=== PATIENT | female | born 2000 | race Caucasian/White ===

== ENCOUNTER 2023-11-22 20:53 | Outpatient (CLI) | payer BC, MEDICAID, SELFPAY ==
[2023-11-22 21:04] VITALS: BP 126/65; PULSE 112
[2023-11-22 21:07] VITALS: BMI 36.6
[2023-11-22 21:14] VITALS: RESP 18; TEMP 36.4
[2023-11-22 21:20] VITALS: BP 136/82; PULSE 90
[2023-11-22 21:34] VITALS: BP 125/69; PULSE 79
[2023-11-22 21:36] LABS: Add Urine Microscopic? NO
[2023-11-22 21:46] LABS: Bilirubin Urine Neg (Negative); Blood Urine Neg (Negative); Glucose Urine UA Norm (Normal); Ketones Urine Negative (Negative); Leukocyte Esterase Urine Negative (Negative); Nitrate Urine Negative (Negative); Protein Urine Neg (Negative); Sulfosalicylic Acid Urine Negative (Negative); Urine Appearance Clear (CLEAR); Urine Color Yellow (Yellow); Urobilinogen Urine Neg (Negative); pH Urine 8 (5-7)
[2023-11-22 22:11] LABS: Add Urine Culture? No; Bacteria Urine TRACE /hpf; RBC Urine 0-4 /hpf (0-2); Squamous Epithelial Cell Urine 0-4 /hpf (0-5)
[2023-11-22] MEDS: calcium carbonate 500 mg Chew Tablet 1000 MG PO (23:01)
[2023-11-22 23:15] VITALS: BP 116/68; PULSE 77
== END 2023-11-23 00:41 | disposition home or self-care (01) ==
LOC: OPOB 20:54 → OBGYN 20:55
PROVIDERS: PCP Family Medicine; Visit Provider Family Medicine
DX: O26.899 Other specified pregnancy related conditions, unspecified trimester (principal); Z3A.00 Weeks of gestation of pregnancy not specified; R10.9 Unspecified abdominal pain
CPT/HCPCS: 59025; 81001; 99211

== ENCOUNTER 2023-12-10 09:07 | Outpatient (CLI) | payer BC, MEDICAID, SELFPAY ==
[2023-12-10 09:07] VITALS: BMI 36.4
[2023-12-10 09:25] VITALS: BP 142/92; PULSE 89
[2023-12-10 09:45] VITALS: BP 146/89; PULSE 79
[2023-12-10 10:05] VITALS: BP 130/93; PULSE 82
[2023-12-10 10:25] VITALS: BP 140/86; PULSE 78
[2023-12-10 10:45] VITALS: BP 137/89; PULSE 74
--- NOTE | 2023-12-10 11:07 | PC.NURSE ---
SVE rechecked in one hour from first exam. No cervical change noted. Pt given discharge instructions on when to return to OB and discharged home.
== END 2023-12-10 11:05 | disposition home or self-care (01) ==
LOC: OPOB 09:17 → OBGYN 09:19
PROVIDERS: PCP Family Medicine; Visit Provider Family Medicine
DX: O26.899 Other specified pregnancy related conditions, unspecified trimester (principal); Z3A.00 Weeks of gestation of pregnancy not specified; R10.9 Unspecified abdominal pain
CPT/HCPCS: 59025; 99211

== ENCOUNTER 2023-12-15 15:29 | Inpatient (IN) | payer BC, MEDICAID, SELFPAY ==
[2023-12-15] VITALS (38 sets, daily range): BP systolic 128–178; BP diastolic 6–108; PULSE 68–113; BMI 36.6
[2023-12-15 14:04] LABS: Add Urine Microscopic? NO; Charge for UA Resulting for Rev
[2023-12-15 14:19] LABS: Basophils % 0.2 %; Eosinophils % 0.4 %; Hematocrit 32.8 % (36-47); Lymphocytes # 2.5 10^3/uL (0.8-4.8); Lymphocytes % 22.8 %; Mean Corpuscular Hemoglobin 25.3 pg (27-33); Monocytes # 0.5 10^3/uL (0.2-0.9); Monocytes % 4.4 %; Neutrophils # 7.83 10^3/uL (1.8-7.7); Neutrophils % 71.7 %; Nucleated Red Blood Cells % 0.3 %; Platelet Count 327 10^3/cmm (157-399); Red Blood Count 4.15 10^6/uL (3.85-5.65); Red Cell Distribution Width 15.4 % (12.1-15.1); White Blood Count 10.91 10^3/uL (3.29-11.43)
[2023-12-15 14:25] LABS: Bilirubin Urine Neg (Negative); Blood Urine Neg (Negative); Glucose Urine UA Norm (Normal); Ketones Urine Negative (Negative); Leukocyte Esterase Urine Negative (Negative); Nitrate Urine Negative (Negative); Protein Urine Neg (Negative); Urine Appearance Clear (CLEAR); Urine Color Yellow (Yellow); Urobilinogen Urine Norm (Negative); pH Urine 8 (5-7)
[2023-12-15 14:36] LABS: Alanine Aminotransferase 7 U/L (0-33); Albumin Level 3.1 g/dL (3.5-5.2); Alkaline Phosphatase 370 U/L (35-105); Anion Gap 17.5 (5-19); Aspartate Amino Transferase 19 U/L (0-32); Blood Urea Nitrogen 2 mg/dL (6-20); Calcium 8.7 mg/dL (8.5-10.5); Carbon Dioxide 20 mmol/L (22-29); Chloride 104 mmol/L (98-107); Creatinine Clr Calc Pharmacy 152.7368; Globulin 3.4 g/dL (1.3-4.6); Glomerular Filtration Rate 123.9 mL/min (90-130); Glucose 110 mg/dL (65-115); Osmolality Calculated 283 mOsm/kg (285-295); Potassium 3.5 mmol/L (3.5-5.1); Sodium 138 mmol/L (136-145); Total Bilirubin 0.2 mg/dL (0.15-1.2); Total Protein 6.5 g/dL (6.6-8.7); Uric Acid 5.3 mg/dL (2.4-5.7)
[2023-12-15 14:54] LABS: Urine Creatinine 24 mg/dL (28-217); Urine Protein Random 7 mg/dL
[2023-12-15 14:56] LABS: UPRO/UCREAT Ratio 0.29 mg/mg CR
[2023-12-15] MEDS: dextrose 5%-lactated ringers 1,000 ML 125 ML IV (16:02)
[2023-12-15] MEDS: miSOPROStol 100 mcg tablet 25 MCG VAGINAL ×2 (16:02→22:26)
[2023-12-15] MEDS: ampicillin 2,000 MG in sodium chloride 0.9% (plus) 50 ML 100 MG IV (16:03)
[2023-12-15] MEDS: calcium carbonate 500 mg Chew Tablet 1000 MG PO (16:04)
--- NOTE | 2023-12-15 17:11 | PM.OPHPUD ---
Labor & Delivery H&P Update Date of Procedure: December 15, 2023 Date H&P Performed: 12/15/23 Changes to previous documentation: This is a 23-year-old G1, P0 at 37 weeks 3 days gestation who presented to clinic for routine follow-up. The patient complained of not feeling well today. She was somewhat nauseated and just didnt feel well . Her blood pressure in clinic was 160/100 so she was sent to labor and delivery for further evaluation. On labor and delivery her blood pressures were mostly 140s over 90s. Her urine protein creatinine ratio was 0.29. Her platelets were within normal limits as well as AST and ALT. Due to the fact that she was already 37 weeks and was symptomatic with elevated blood pressures decision was made to proceed with induction. Her cervix is not favorable so she will be started on Cytotec. Admission Diagnosis: -induced hypertension IUP at 37 weeks 3 days gestation Primary indication for procedure: Symptomatic elevated blood pressures at term Planned procedure: Induction of labor and delivery
[2023-12-15] MEDS: acetaminophen 325 mg Tablet 650 MG PO (18:48)
[2023-12-15] MEDS: hyDROXYzine 25 mg Capsule 50 MG PO (18:50)
[2023-12-15] MEDS: alum-mag-hydroxide-sime 30 mL UDC PO (18:51)
[2023-12-15] MEDS: ampicillin 1,000 MG in sodium chloride 0.9% (plus) 50 ML 100 MG IV (20:04)
--- NOTE | 2023-12-15 21:02 | ANES.PREANE2 ---
Pre-Anesthetic Assessment Height/Weight: Height 1.57 m Weight 90.718 kg Pulse BP O2 Del Method 70 140/78 Room Air 12/15/23 20:35 12/15/23 20:35 12/15/23 16:23 Preop Diagnosis: IUP Labor epidural Familial anesthetic complications: None Was Beta Lucien taken within 24 hours: N/A Was Clonidine taken within 24 hours: N/A Social No alcohol and No tobacco Exam alert, oriented x 3 and clear to auscultation bilaterally Airway Mallampati: Class II Dentition: full History/ROS No significant history except as noted Pulmonary None reported CV/HEM Hypertension gestational HTN None reported Hepatic None reported GI None reported Metabolic None reported Musc/skel None reported Neuropsych None reported Anesthetic Plan ASA status: 2 Anesthesia: Anesthesia Evaluation and Eval. for regional block (epidural ) Risk of > 500 ml blood loss (7ml/kg in children): Yes, adequate IV access and fluids planned Medications/Allergies Home Medications Medication Instructions Recorded Confirmed Last Taken Type Prena-Tab 1 tab PO DAILY 11/22/23 12/10/23 11/22/23 History Tylenol 1,000 mg PO PRN 11/22/23 12/10/23 11/22/23 History calcium 1 tab PO DAILY 11/22/23 12/10/23 11/22/23 History Allergies Allergy/AdvReac Type Severity Reaction Status Date / Time NSAIDS (Non-Steroidal Allergy ADR-Vomitin Verified 11/22/23 21:10 Anti-Inflamma g Current Medications Generic Name Dose Route Start Last Admin Trade Name Freq PRN Reason Stop Dose Admin Acetaminophen 650 mg 12/15/23 15:37 12/15/23 18:48 Acetaminophen 325 Mg Tablet PO 650 mg Q6H PRN Administration Mild pain or temp > 100.4 Al Hydrox/Mg Hydrox/Simethicone 30 ml 12/15/23 15:37 12/15/23 18:51 Kiyh-Obg-Pcifniyoo-Randy 30 Ml Udc PO 30 ml Q4H PRN Administration Indigestion (Use 2nd) Calcium Carbonate 1,000 mg 12/15/23 15:37 12/15/23 16:04 Calcium Carbonate 500 Mg Chew Tablet PO 1,000 mg Q4H PRN Administration Heartburn/Indigestion (Use 1st) Hydroxyzine Pamoate 50 mg 12/15/23 15:37 12/15/23 18:50 Hydroxyzine 25 Mg Capsule PO 50 mg QID PRN Administration sleep, agitation or itching Dextrose/Lactated Ringer's 1,000 mls @ 125 mls/hr 12/15/23 15:45 12/15/23 17:00 Dextrose 5%-Lactated Ringers IV 0 mls/hr .Q8H DIONICIO Infusion Ampicillin Sodium 1,000 mg/ 50 mls @ 100 mls/hr 12/15/23 19:45 12/15/23 20:04 Sodium Chloride IV 100 mls/hr Q4H DIONICIO Administration Protocol [facility] Anesthesia Family History (Updated 09/09/22 @ 15:31 by Jeannie Murray) Mother Cancer skin Brother Diabetes Type 2 Denies family history of CAD (coronary artery disease) Hypertension Stroke Female Reproductive History : 1 Data Anesthesia 12/15/23 14:05 12/15/23 14:05 Short CBC 12/15/23 Range/Units 14:05 WBC 10.91 (3.29-11.43) 10^3/uL Hgb 10.50 L (11.27-16.99) g/dL Hct 32.8 L (36-47) % MCV 79.0 L (85-98) fl Plt Count 327 (157-399) 10^3/cmm Neut % (Auto) 71.7 % Neut # (Auto) 7.83 H (1.8-7.7) 10^3/uL BMP 12/15/23 14:05 Sodium 138 Potassium 3.5 Chloride 104 Carbon Dioxide 20 L BUN 2 L Creatinine 0.6 Glucose 110 Calcium 8.7 Liver Function 12/15/23 Range/Units 14:05 Total Bilirubin 0.2 (0.15-1.2) mg/dL AST 19 (0-32) U/L ALT 7 (0-33) U/L Alkaline Phosphatase 370 H (35-105) U/L Albumin 3.1 L (3.5-5.2) g/dL Urine 12/15/23 Range/Units 13:35 Urine Color Yellow (Yellow) Urine Appearance Clear (CLEAR) Urine pH 8 H (5-7) Ur Specific [place] 1.010 (1.005-1.030) Urine Protein Neg (Negative) Urine Glucose (UA) Norm (Normal) Urine Ketones Negative (Negative) Urine Nitrate Negative (Negative) Urine Bilirubin Neg (Negative) Ur Leukocyte Esterase Negative (Negative) Blood Bank 12/15/23 14:05 Blood Type O Positive Rho(D) Type Rh positive Antibody Screen Negative Cardiac Studies: No Data to Display
[2023-12-16] VITALS (134 sets, daily range): BP systolic 103–180; BP diastolic 43–115; PULSE 63–105; RESP 14–16; TEMP 36.2–36.6; O2SAT 97–100
[2023-12-16] MEDS: ampicillin 1,000 MG in sodium chloride 0.9% (plus) 50 ML 100 MG IV ×6 (00:15→19:25)
[2023-12-16] MEDS: calcium carbonate 500 mg Chew Tablet 1000 MG PO (00:15)
[2023-12-16] MEDS: lactated ringers 1,000 ML 999 ML IV ×3 (02:48→22:24)
[2023-12-16] MEDS: ROPivacaine syringe 100 MG/50 ML SYRINGE 10 MG EPIDURAL ×5 (04:03→20:54)
--- NOTE | 2023-12-16 04:12 | P.ANESUD_ITS ---
Pre-Anesthetic Update Pre-Anesthetic Assessment: Date of Surgery/Procedure: 12/16/23 Preop María gnosis: IUP Proposed Procedure: labor epidural Any changes to Pre-Anesthetic Assessment?: No Last Intake: solids @1900, liquids @2100 Labs Last 48hrs: Short CBC 12/15/23 Range/Units 14:05 WBC 10.91 (3.29-11.43) 10^ 3/uL Hgb 10.50 L (11.27-16.99) g/ dL Hct 32.8 L (36-47) % MCV 79.0 L (85-98) fl Plt Count 327 (157-399) 10^3/c mm Neut % (Auto) 71.7 % Neut # (Auto) 7.83 H (1.8-7.7) 10^3/u L BMP 12/15/23 14:05 Sodium 138 Potassium 3.5 Chloride 104 Carbon Dioxide 20 L BUN 2 L Creatinine 0.6 Glucose 110 Calcium 8.7 Liver Function 12/15/23 Range/Units 14:05 Total Bilirubin 0.2 (0.15-1.2) mg/dL AST 19 (0-32) U/L ALT 7 (0-33) U/L Alkaline Phosphata se 370 H (35-105) U/L Albumin 3.1 L (3.5-5.2) g/dL Urine 12/15/23 Range/Units 13:35 Urine Color Yellow (Yellow) Urine Appearance Clear (CLEAR) Urine pH 8 H (5-7) Ur Specific Gravit y 1.010 (1.005-1.030) Urine Protein Neg (Negative) Urine Glucose (UA) Norm (Normal) Urine Ketones Negative (Negative) Urine Nitrate Negative (Negative) Urine Bilirubin Neg (Negative) Ur Leukocyte Dotty ase Negative (Negative) Blood Bank 12/15/23 14:05 Blood Type O Positive Rho(D) Type Rh positive Antibody Screen Negative Vitals: Pulse Rate 93 12/16/23 04:09 Pulse Rhythm Regular 12/15/23 16:23 Respiratory Effort Spontaneous, Non- Labored 12/15/23 16:23 Respiratory Depth Normal 12/15/23 16:23 Respiratory Patter n Normal 12/15/23 16:23 Blood Pressure 140/87 12/16/23 04:09 Pulse Oximetry 98 12/16/23 04:07 Oxygen Delivery Me thod Room Air 12/15/23 16:23 Exam: Pre-Anes Outpt Exam: alert, oriented x 3 and clear to auscultation bilaterally Cardiac Studies: No Data to Display Anesthesia Procedures Epidural: Time Out Performed: Yes Consents Signed: Procedure Consent Consent: requested by attending/covering physician, from patient, risks and benefits reviewed and patient agrees to proceed Lumbar Level: L4-L5 Epidural position: sitting Epidural procedure: sterile prep of area, 1% lidocaine to numb the area, 18 g needle, negative for paresthesia passed, neg for paresthesia, test dose given, 1.5% xylocaine 1:200k epi, 0.2% Ropivacaine bolus ml (5), placed PCEA, no systemic response, sterile dressing applied, L.U.D. no apparent complications and 0.2% Ropiavacaine @ mls/hr (10) Additional Comments: JULY 6cm, catheter easily threaded to 5cm in the space. Pt educated on [employer]. VS monitored and remained stable throughout the procedure.
[2023-12-16] MEDS: dextrose 5%-lactated ringers 1,000 ML 125 ML IV (11:53)
--- NOTE | 2023-12-16 12:32 | P.PN_ITS ---
Subjective 2 Subjective: The patient is being induced for -induced hypertension. She received 2 doses of Cytotec and received an epidural overnight. The infant's head was well engaged so I just performed artificial rupture of membranes with clear fluid. We will see if this stimulates her to make more cervical change. If not then we will be starting Pitocin. Her blood pressures have been mostly mild she has had a couple severe but they were not sustained. Vitals/I&O/Wt Last Vital Signs Temp 97.2 F L 12/16/23 11:52 Pulse 83 12/16/23 12:25 BP 156/94 12/16/23 12:25 Pulse Ox 100 12/16/23 04:42 O2 Del Method Room Air 12/15/23 16:23 12/15/23 12/16/23 12/16/23 22:59 06:59 14:59 Intake Total 220.833 / 830.368 8852 / 1320.833 885.417 / 885.417 Balance 220.833 / 693.235 2848 / 1320.833 885.417 / 885.417 Weight last 48 hrs Weight 90.718 kg Physical Exam 2 Narrative: Alert and oriented, lying in bed, cervical exam 4 cm, 50% effaced, -3 station, clear fluid with artificial rupture membranes Urinary Catheter Management: Valle: Cath Placed During This Visit: yes Reason for Continuing Indwelling Catheter: Required Immobilization for Trauma or Surgery or Anesthesia Urinary Catheter Date of Insertion: 12/16/23 Urinary Catheter Time of Insertion: 04:30 Data 12/15/23 14:05 12/15/23 14:05 A&P Assessment and plan (1) -induced hypertension in third trimester: Reason for induction. She has not required antihypertensives yet. (2) Group B streptococcal carriage complicating : She continues to receive ampicillin protocol and has already received multiple doses. (3) with 37 weeks completed gestation: Expectant management of labor and delivery Attestations 2 Medical Necessity Statement*: Induction with expectant management of labor and delivery Coding Level of Care Code Acute Code for Chg Fwd Diagnoses -induced hypertension in third trimester O13.3 Group B streptococcal carriage complicating O99.820 with 37 weeks completed gestation Z3A.37
[2023-12-16] MEDS: labetalol 5 mg/mL SDV 20mL 20 MG IVP ×3 (13:52→22:32)
[2023-12-16] MEDS: oxytocin 30 UNIT/500 ML BAG IV (13:58)
[2023-12-16] MEDS: citric acid-sodium citrate 30 mL UDC PO (22:35)
[2023-12-16] MEDS: metoclopramide 5 mg/mL SDV 2 mL 10 MG IVP (22:35)
[2023-12-16] MEDS: ceFAZolin 2,000 mg SDV 2000 MG IVP (22:35)
[2023-12-16] MEDS: famotidine 20 mg/2 mL INJ IVP (22:35)
--- NOTE | 2023-12-16 23:55 | PM.OP ---
Operative Report Date of procedure: December 16, 2023 Pre-op diagnosis: Failure to progress Intrauterine at 37 weeks gestation -induced hypertension Procedure done: Primary low-transverse section Via Pfannenstiel skin incision Specimens removed/disposition: Vertex male weight 3560 g, Apgars 8 and 9 Surgeon: Mirta Kirby MD Anesthesia: Epidural Estimated blood loss (mL): 500 IV fluids (mL): 1,500 Urine output (mL): 150 Complications: None Brief History: Despite high-dose Pitocin and rupture of membranes the patient only dilated to 5 cm 50% effacement and -2 station. Over the course of 4 hours there was no progress in dilation and effacement or station Procedure: After informed consent the patient was taken to the OR where epidural anesthesia was verified. The patient was prepped and draped in normal sterile fashion in dorsal supine position with a left lateral tilt. A Pfannenstiel skin incision was made and carried through to the underlying layer of fascia sharply. The fascia was then grasped with [place] clamps and the underlying rectus muscles were dissected off taking care to avoid injury to the underlying tissue. The peritoneum was entered bluntly and the incision site was manually stretched. The bladder blade was inserted. The vesicouterine peritoneum was identified and entered sharply using the Metzen[place]ums. The bladder flap was then created digitally and the bladder blade was reinserted. Uterine incision was made in a transverse fashion in the lower uterine segment. Amniotic rupture of membranes was performed with the scalpel and clear fluid was noted. The was delivered atraumatically with bulb suction of the mouth and naris at delivery. The cord was clamped and cut and the infant was handed to the waiting pediatric nurse. The bladder blade was reinserted and fundal pressure was used to express the placenta. The placenta bulged easily from the incision site and was grasped for removal. Upon removal it was evident that the placenta was still attached to the uterus which had everted. The uterus was quickly and easily inverted back into correct anatomical position. The placenta was then removed using fundal pressure. The uterus was then removed from the abdomen. A dry sponge was used to clear the uterus of clots and debris. Uterine incision was repaired in a running fashion using 0 chromic in a running locked fashion. The uterus was rather boggy despite a bolus of Pitocin so 10 units of Pitocin was sterilely drawn up and injected directly into the body of the uterus. The uterine incision was then repaired with a second layer using an imbricating manner with 0 chromic. The uterus was returned to the abdomen and irrigation was used to clear the gutters of clots and debris. Uterine incision was reinspected for hemostasis. Peritoneum was then reapproximated using 4-0 Vicryl in a running fashion. The rectus muscles were gently reapproximated using 1 [id number] suture of 4-0 Vicryl. The subfascial tissue was inspected for hemostasis and the fascia was then reapproximated using 0 Vicryl in a running fashion. The subcutaneous tissue was irrigated and then reapproximated using 4-0 Vicryl in a running fashion. The skin was then reapproximated using 4-0 Vicryl on a Quentin needle. Steri-Strips and a pressure bandage were applied and patient went to recovery in good condition
[2023-12-17] VITALS (20 sets, daily range): BP systolic 98–162; BP diastolic 60–94; PULSE 64–93; RESP 14–16; TEMP 36.4–37; O2SAT 98–100
[2023-12-17] MEDS: ketorolac 30 mg/mL INJ IVP ×4 (02:12→19:53)
[2023-12-17] MEDS: dextrose 5%-lactated ringers 1,000 ML 125 ML IV (03:54)
--- NOTE | 2023-12-17 07:19 | P.ANESUD_ITS ---
Pre-Anesthetic Update Pre-Anesthetic Assessment: Date of Surgery/Procedure: 12/16/23 Preop María gnosis: IUP Proposed Procedure: Operation Date: 12/16/23 22:40 Proposed Procedures p Section(Not Applicable) - Mirta Kirby MD Changes from Pre-Anesthetic Assessment: no Last Intake: na Labs Last 48hrs: Short CBC 12/15/23 Range/Units 14:05 WBC 10.91 (3.29-11.43) 10^ 3/uL Hgb 10.50 L (11.27-16.99) g/ dL Hct 32.8 L (36-47) % MCV 79.0 L (85-98) fl Plt Count 327 (157-399) 10^3/c mm Neut % (Auto) 71.7 % Neut # (Auto) 7.83 H (1.8-7.7) 10^3/u L BMP 12/15/23 14:05 Sodium 138 Potassium 3.5 Chloride 104 Carbon Dioxide 20 L BUN 2 L Creatinine 0.6 Glucose 110 Calcium 8.7 Liver Function 12/15/23 Range/Units 14:05 Total Bilirubin 0.2 (0.15-1.2) mg/dL AST 19 (0-32) U/L ALT 7 (0-33) U/L Alkaline Phosphata se 370 H (35-105) U/L Albumin 3.1 L (3.5-5.2) g/dL Urine 12/15/23 Range/Units 13:35 Urine Color Yellow (Yellow) Urine Appearance Clear (CLEAR) Urine pH 8 H (5-7) Ur Specific Gravit y 1.010 (1.005-1.030) Urine Protein Neg (Negative) Urine Glucose (UA) Norm (Normal) Urine Ketones Negative (Negative) Urine Nitrate Negative (Negative) Urine Bilirubin Neg (Negative) Ur Leukocyte Dotty ase Negative (Negative) Blood Bank 12/15/23 14:05 Blood Type O Positive Rho(D) Type Rh positive Antibody Screen Negative Vitals: Temperature 97.9 F 12/17/23 01:05 Temperature Source Oral 12/17/23 00:25 Pulse Rate 78 12/17/23 06:12 Pulse Rhythm Regular 12/15/23 16:23 Respiratory Rate 16 12/17/23 00:25 Respiratory Effort Spontaneous, Non- Labored 12/15/23 16:23 Respiratory Depth Normal 12/15/23 16:23 Respiratory Patter n Normal 12/15/23 16:23 Blood Pressure 142/70 12/17/23 06:12 Blood Pressure Tonja n 83 12/17/23 00:25 Blood Pressure Pos ition Semi Fowlers 12/17/23 00:10 Pulse Oximetry 100 12/17/23 00:25 Oxygen Delivery Me thod Room Air 12/17/23 00:25 Exam: Pre-Anes Outpt Exam: alert, oriented x 3 and clear to auscultation bilaterally Additional Exam Findings (including area of procedure): comfortable with epidural Cardiac Studies: No Data to Display
--- NOTE | 2023-12-17 07:21 | P.ANESPOST_ITS ---
Inpatient post-anesthesia follow up: Vital signs: Temperature 97.9 F Pulse Rate 78 Respiratory Rate 16 Blood Pressure 142/70 Pulse Oximetry 100 Oxygen Delivery Me thod Room Air Oxygen Flow Rate Fraction of Inspir ed Oxygen Hydration adequate: Yes Nausea and vomiting: No Pain level: con trolled Mental status: Baseline Additional Comments: no apparent anesthetic complications noted Epidural Start/End: Epidural Start Date: 12/16/23 Epidural Start Time: 03:50 Epidural End Date: 12/16/23 Epidural End Time: 23:50
[2023-12-17] MEDS: PRENATAL VIT NO.130/IRON/FOLIC 1 EACH TABLET PO (08:44)
[2023-12-17] MEDS: docusate sodium 100 mg Capsule PO ×2 (08:45→18:05)
[2023-12-17] MEDS: HYDROcodone-acetaminophen 5-325 mg Tablet PO (08:45)
--- NOTE | 2023-12-17 10:36 | PM.PN ---
Subjective Subjective: Postop day 0-1 doing well. She is sitting up in bedside chair feeding the infant. Bleeding has been light average. Vitals/I&O/Wt Last Vital Signs Temp 97.7 F 12/17/23 10:00 Pulse 76 12/17/23 10:00 Resp 14 12/17/23 10:00 BP 162/94 12/17/23 10:00 Pulse Ox 98 12/17/23 10:00 O2 Del Method Room Air 12/17/23 10:00 12/16/23 12/17/23 12/17/23 22:59 06:59 14:59 Intake Total 342.816 / 1812.347 7769.734 / 4379.734 Output Total 2900 / 4500 950 / 5450 Balance -2557.184 / -3220.317 -950 / -4170.317 4379.734 / 4379.734 Weight last 48 hrs Weight 90.718 kg Physical Exam Narrative: Sitting up in bedside chair feeding , heart regular rate and rhythm, lungs clear to auscultation bilaterally, abdomen is soft with appropriate postoperative tenderness, pressure bandage is clean dry and intact, extremities have 1+ edema but no calf tenderness Urinary Catheter Management: Valle: Cath Placed During This Visit: yes Reason for Continuing Indwelling Catheter: Required Immobilization for Trauma or Surgery or Anesthesia Urinary Catheter Date of Insertion: 12/16/23 Urinary Catheter Time of Insertion: 04:30 Data 12/17/23 13:15 12/15/23 14:05 A&P Assessment and plan (1) Status post primary low transverse section: Continue routine postoperative care (2) -induced hypertension in third trimester: She has had 1 severely elevated blood pressure 162/94 this morning. She had many visitors there. Her other blood pressures have been within normal limits. Continue hypertensive protocol. (3) Group B streptococcal carriage complicating : (4) with 37 weeks completed gestation: Attestations Medical Necessity Statement*: Routine postoperative and care. Coding Level of Care Code Acute Code for Chg Fwd Diagnoses Status post primary low transverse section Z98.891 -induced hypertension in third trimester O13.3 Group B streptococcal carriage complicating O99.820 with 37 weeks completed gestation Z3A.37
[2023-12-17 13:56] LABS: Hematocrit 29.5 % (36-47); Mean Corpuscular HGB Conc 31.2 g/dL (30-55); Mean Corpuscular Hemoglobin 25.2 pg (27-33); Mean Corpuscular Volume 80.8 fl (85-98); Mean Platelet Volume 11.2 fL (7.4-10.4); Platelet Count 243 10^3/cmm (157-399); Red Blood Count 3.65 10^6/uL (3.85-5.65); Red Cell Distribution Width 16.2 % (12.1-15.1); White Blood Count 16.85 10^3/uL (3.29-11.43)
[2023-12-17] MEDS: lanolin oint 7 gm 1 APPLIC TOPICAL (15:54)
[2023-12-18] MEDS: HYDROcodone-acetaminophen 5-325 mg Tablet PO ×5 (00:55→21:08)
[2023-12-18 06:05] VITALS: TEMP 36.8
[2023-12-18 06:06] VITALS: BP 135/89; PULSE 68
[2023-12-18] MEDS: docusate sodium 100 mg Capsule PO ×2 (07:47→21:07)
[2023-12-18] MEDS: PRENATAL VIT NO.130/IRON/FOLIC 1 EACH TABLET PO (07:47)
[2023-12-18 10:31] VITALS: BP 185/100; PULSE 85
[2023-12-18 10:52] VITALS: BP 160/84; PULSE 80; TEMP 36.7
--- NOTE | 2023-12-18 17:47 | P.PN_ITS ---
Subjective 2 Subjective: Postop day 1-2 patient is doing well. She is up and ambulating, tolerating a regular diet, passing flatus, she has good pain control with oral medications. Vitals/I&O/Wt Last Vital Signs Temp 98.1 F 12/18/23 10:52 Pulse 80 12/18/23 10:52 Resp 16 12/17/23 16:00 BP 160/84 12/18/23 10:52 Pulse Ox 98 12/17/23 10:00 O2 Del Method Room Air 12/17/23 10:00 Physical Exam 2 Narrative: Alert and oriented, sitting up in bed, heart regular rate and rhythm, lungs clear to auscultation bilaterally, abdomen is soft with appropriate postoperative tenderness, incision is clean and intact, Steri-Strips are somewhat moist, extremities have no edema no calf tenderness Urinary Catheter Management: Valle: Cath Placed During This Visit: yes, but has since been removed by the nurse Reason for Continuing Indwelling Catheter: Decision to DC Catheter Urinary Catheter Date of Insertion: 12/16/23 Urinary Catheter Time of Insertion: 04:30 Date Urinary Catheter Removed: 12/17/23 Time Urinary Catheter Discontinued: 13:00 Data 12/17/23 13:15 12/15/23 14:05 A&P Assessment and plan (1) Status post primary low transverse section: Routine postoperative care. Likely discharge home tomorrow (2) with 37 weeks completed gestation: (3) Group B streptococcal carriage complicating : (4) -induced hypertension in third trimester: Attestations 2 Medical Necessity Statement*: Routine postoperative care Coding Level of Care Code Acute Code for Chg Fwd Diagnoses Status post primary low transverse section Z98.891 with 37 weeks completed gestation Z3A.37 Group B streptococcal carriage complicating O99.820 -induced hypertension in third trimester O13.3
[2023-12-18 21:07] VITALS: BP 157/95; PULSE 78
[2023-12-19] VITALS (8 sets, daily range): BP systolic 150–176; BP diastolic 72–99; PULSE 61–76; RESP 16; TEMP 36.6; O2SAT 97
[2023-12-19] MEDS: HYDROcodone-acetaminophen 5-325 mg Tablet PO ×2 (01:20→09:36)
[2023-12-19] MEDS: ferrous sulfate EC 325 mg Tablet PO (09:37)
[2023-12-19] MEDS: docusate sodium 100 mg Capsule PO (09:37)
[2023-12-19] MEDS: PRENATAL VIT NO.130/IRON/FOLIC 1 EACH TABLET PO (09:37)
--- NOTE | 2023-12-19 10:10 | P.DS_ITS ---
Discharge Providers Date of Admission: 12/15/23 15:29 Date of Discharge: December 19, 2023 Attending Provider at Admission: Mirta Kirby MD Attending Provider at Discharge: Mirta Kirby MD Primary Care Provider: Mirta Kirby MD Diagnoses at Discharge Discharge Diagnosis (1) Status post primary low transverse section: Status: Acute (2) with 37 weeks completed gestation: Status: Acute (3) Group B streptococcal carriage complicating : Status: Acute (4) -induced hypertension in third trimester: Status: Acute Reason for Visit Reason for Visit: Hypertension Hospital Course Hospital Course This is a 23-year-old G1 now P1 who was admitted for induction at 37 weeks for -induced hypertension. She had failure to progress including failure to dilate as well as failure to her face and failure to descend. She underwent a primary low-transverse section. She did well postoperatively was ambulating, tolerating a regular diet, had good pain control and was comfortable with discharge home. Her blood pressures were mostly 150s over 90s. She has had a couple in the severe range so we will start Procardia XL 30 mg daily and follow her closely outpatient. Physical Exam Narrative: Alert and oriented, sitting up in bed, heart regular rate and rhythm, lungs clear to auscultation bilaterally, abdomen is soft with appropriate postoperative tenderness, incision is clean and intact, steristrips are moist. trace edema, no calf tenderness Urinary Catheter Management: Valle: Cath Placed During This Visit: yes, but has since been removed by the nurse Reason for Continuing Indwelling Catheter: Decision to DC Catheter Urinary Catheter Date of Insertion: 12/16/23 Urinary Catheter Time of Insertion: 04:30 Date Urinary Catheter Removed: 12/17/23 Time Urinary Catheter Discontinued: 13:00 Discharge Data Studies Completed and Pending Laboratory Results WBC 16.85 10^3/uL (3.29-11.43) H 12/17/23 13:15 RBC 3.65 10^6/uL (3.85-5.65) L 12/17/23 13:15 Hgb 9.20 g/dL (11.27-16.99) L 12/17/23 13:15 Hct 29.5 % (36-47) L 12/17/23 13:15 MCV 80.8 fl (85-98) L 12/17/23 13:15 MCH 25.2 pg (27-33) L 12/17/23 13:15 MCHC 31.2 g/dL (30-55) 12/17/23 13:15 RDW 16.2 % (12.1-15.1) H 12/17/23 13:15 Plt Count 243 10^3/cmm (157-399) 12/17/23 13:15 MPV 11.2 fL (7.4-10.4) H 12/17/23 13:15 Neut % (Auto) 71.7 % 12/15/23 14:05 Lymph % (Auto) 22.8 % 12/15/23 14:05 [place] % (Auto) 4.4 % 12/15/23 14:05 Eos % (Auto) 0.4 % 12/15/23 14:05 Baso % (Auto) 0.2 % 12/15/23 14:05 Neut # (Auto) 7.83 10^3/uL (1.8-7.7) H 12/15/23 14:05 Lymph # (Auto) 2.5 10^3/uL (0.8-4.8) 12/15/23 14:05 [place] # (Auto) 0.5 10^3/uL (0.2-0.9) 12/15/23 14:05 Eos # (Auto) 0.0 10^3/uL (0.0-0.8) 12/15/23 14:05 Baso # (Auto) 0.0 10^3/uL (0.0-0.1) 12/15/23 14:05 Nucleated RBC % (auto) 0.3 % 12/15/23 14:05 Nucleated RBCs # 0.0 /100WBC 12/15/23 14:05 Sodium 138 mmol/L (136-145) 12/15/23 14:05 Potassium 3.5 mmol/L (3.5-5.1) 12/15/23 14:05 Chloride 104 mmol/L (98-107) 12/15/23 14:05 Carbon Dioxide 20 mmol/L (22-29) L 12/15/23 14:05 Anion Gap 17.5 (5-19) 12/15/23 14:05 BUN 2 mg/dL (6-20) L 12/15/23 14:05 Creatinine 0.6 mg/dL (0.5-0.9) 12/15/23 14:05 GFR Calculation 123.9 mL/min (90-130) 12/15/23 14:05 Glucose 110 mg/dL (65-115) 12/15/23 14:05 Calculated Osmolality 283 mOsm/kg (285-295) L 12/15/23 14:05 Uric Acid 5.3 mg/dL (2.4-5.7) 12/15/23 14:05 Calcium 8.7 mg/dL (8.5-10.5) 12/15/23 14:05 Total Bilirubin 0.2 mg/dL (0.15-1.2) 12/15/23 14:05 AST 19 U/L (0-32) 12/15/23 14:05 ALT 7 U/L (0-33) 12/15/23 14:05 Alkaline Phosphatase 370 U/L (35-105) H 12/15/23 14:05 Total Protein 6.5 g/dL (6.6-8.7) L 12/15/23 14:05 Albumin 3.1 g/dL (3.5-5.2) L 12/15/23 14:05 Globulin 3.4 g/dL (1.3-4.6) 12/15/23 14:05 Urine Color Yellow (Yellow) 12/15/23 13:35 Urine Appearance Clear (CLEAR) 12/15/23 13:35 Urine pH 8 (5-7) H 12/15/23 13:35 Ur Specific [place] 1.010 (1.005-1.030) 12/15/23 13:35 Urine Protein Neg (Negative) 12/15/23 13:35 Urine Glucose (UA) Norm (Normal) 12/15/23 13:35 Urine Ketones Negative (Negative) 12/15/23 13:35 Urine Blood Neg (Negative) 12/15/23 13:35 Urine Nitrate Negative (Negative) 12/15/23 13:35 Urine Bilirubin Neg (Negative) 12/15/23 13:35 Urine Urobilinogen Norm mg/dL (Negative) 12/15/23 13:35 Ur Leukocyte Esterase Negative (Negative) 12/15/23 13:35 U Random Total Protein 7 mg/dL 12/15/23 13:35 Urine Creatinine 24 mg/dL (28-217) L 12/15/23 13:35 Protein/Creatinin Ratio 0.29 mg/mg CR 12/15/23 13:35 Blood Type O Positive 12/15/23 14:05 Rho(D) Type Rh positive 12/15/23 14:05 Antibody Screen Negative 12/15/23 14:05 Vitals Last Vital Signs Temp 97.9 F 12/19/23 04:36 Pulse 76 12/19/23 04:36 Resp 16 12/19/23 04:36 BP 158/99 12/19/23 04:36 Pulse Ox 97 12/19/23 04:36 O2 Del Method Room Air 12/19/23 04:36 Discharge Plan Discharge Patient Disposition: Home Condition: Stable Prescriptions: New docusate sodium 100 mg Capsule 100 mg PO BID Qty: 60 1RF hydrocodone-acetaminophen 5-325 mg Tablet 1 - 2 tab PO Q4H PRN (Reason: Moderate To Severe Pain) Qty: 20 0RF Procardia XL 30 mg tablet extended release 24hr 30 mg PO DAILY Qty: 30 0RF Continued Prena-Tab 1 tab PO DAILY calcium 1 tab PO DAILY Discontinued Tylenol 1,000 mg PO PRN Discharge Orders: Discharge Order (Routine); Ordered 12/19/23 Ordered By: Mirta Kirby Discharge Diet: Usual diet Discharge Activity: Limit activity as instructed Patient Instructions: Depression (DC), Bleeding (DC), Preeclampsia and Eclampsia After Delivery (GEN), Hemorrhage (DC), OB - Paolo/Mirta, OB Discharge Report, OB Anesthesia Instructions, OB Food/Drug Interaction Guide, Opioid Safety, OB Home Care, OB Proud Parent Packet Activity Restrictions/Additional Instructions: No lifting greater than 10 pounds for 2 weeks. Nothing per vagina for 6 weeks Discharge Attestations Time Spent in Discharge Care*: less than 30 min Quality Metrics Clinical Quality Measures [ No reported AMI, CVA or VTE this stay] Coding Level of Care Code Acute Code for Chg Fwd Diagnoses Status post primary low transverse section Z98.891 with 37 weeks completed gestation Z3A.37 Group B streptococcal carriage complicating O99.820 -induced hypertension in third trimester O13.3
== END 2023-12-19 13:30 | disposition home or self-care (01) | DRG 788 ==
LOC: OPOB 15:29 → OBGYN 15:29
PROVIDERS: Admitting Provider Family Medicine; PCP Family Medicine; Visit Provider Family Medicine
PROC: 10D00Z1 Extraction of Products of Conception, Low, Open Approach (ICD-10-PCS; CPT 59514; principal; 2023-12-16 22:40)
DX: O13.4 Gestational [pregnancy-induced] hypertension without significant proteinuria, complicating childbirth (principal); O99.824 Streptococcus B carrier state complicating childbirth; O62.0 Primary inadequate contractions; Z3A.37 37 weeks gestation of pregnancy; Z37.0 Single live birth
CPT/HCPCS: 36415; 51702; 59025; 59409; 80053; 81003; 82570; 84156; 84550; 85025; 85027; 86850; 86900; 98960; 99211; J0290; J0690; J1885; J2274; J2371; J2405; J2590; J2765; J2795; J3490; J7030; J7120; J7121

== ENCOUNTER 2024-08-24 15:35 | Emergency (ER) | payer BC, MEDICAID, SELFPAY ==
[2024-08-24 15:41] VITALS: BP 130/85; PULSE 109; RESP 14; TEMP 37; O2SAT 98; BMI 32.0
[2024-08-24 16:22] LABS: Basophils % 0.2 %; Eosinophils % 0.2 %; Hematocrit 41.1 % (36-47); Lymphocytes # 1.7 10^3/uL (0.8-4.8); Lymphocytes % 8.7 %; Mean Corpuscular HGB Conc 32.1 g/dL (30-55); Mean Corpuscular Hemoglobin 26.3 pg (27-33); Mean Corpuscular Volume 81.9 fl (85-98); Mean Platelet Volume 8.7 fL (7.4-10.4); Monocytes # 0.7 10^3/uL (0.2-0.9); Monocytes % 3.3 %; Neutrophils # 17.34 10^3/uL (1.8-7.7); Neutrophils % 87.2 %; Nucleated Red Blood Cells % 0 %; Platelet Count 483 10^3/cmm (157-399); Red Blood Count 5.02 10^6/uL (3.85-5.65); Red Cell Distribution Width 13.2 % (12.1-15.1); White Blood Count 19.89 10^3/uL (3.29-11.43)
[2024-08-24 16:38] LABS: HCG, Serum Qual Negative (Negative)
[2024-08-24 16:44] VITALS: BP 129/81; PULSE 93; O2SAT 98
[2024-08-24 16:44] LABS: Alanine Aminotransferase 18 U/L (0-33); Albumin Level 4.1 g/dL (3.5-5.2); Alkaline Phosphatase 138 U/L (35-105); Anion Gap 18.2 (5-19); Aspartate Amino Transferase 16 U/L (0-32); Blood Urea Nitrogen 8 mg/dL (6-20); Calcium 9.3 mg/dL (8.5-10.5); Carbon Dioxide 26 mmol/L (22-29); Chloride 103 mmol/L (98-107); Creatinine Clr Calc Pharmacy 141.0793; Globulin 3.9 g/dL (1.3-4.6); Glomerular Filtration Rate 122.8 mL/min (90-130); Glucose 107 mg/dL (65-115); Lipase 21 U/L (13-60); Osmolality Calculated 295 mOsm/kg (285-295); Potassium 4.2 mmol/L (3.5-5.1); Sodium 143 mmol/L (136-145); Total Bilirubin 0.4 mg/dL (0.15-1.2)
--- NOTE | 2024-08-24 16:47 | ED_ITS ---
Documented by User: Delano Galan DO 08/25/24 06:13 HPI - Abdominal Pain 2 General: Chief Complaint: Abdominal Pain Stated Complaint: abd pain Time Seen by Provider: 08/24/24 16:01 History of Present Illness: 24-year-old female presents emergency ro om complaining of severe abdominal pain began around 10 AM this morning. Subsided a little bit at this time. No fever. Patient has poor appetite denies dysuria urgency or frequency no hematochezia melena hematemesis coffee-ground emesis does not believe she is . Associated Symptoms: Reports nausea; Denies chills, dysuria and fever(s) Related Data Date of Last Menstrual Period: 08/19/24 Home Medications ?Medication ?Instructions ?Recorded ?Confirmed Prena-Tab 1 tab PO DAILY 11/22/2312/05 calcium 1 tab PO DAILY 11/22/2312/05 Previous Rx's ?Medication ?Instructions ?Recorded docusate sodium 100 mg capsule 100 mg PO BID #60 caps 12/19/23 hydrocodone 5 mg-acetaminophen 325 1 - 2 tab PO Q4H VA N Moderate To 12/19/23 mg tablet Severe Pain #20 tabs nifedipine 30 mg tablet,extended 30 mg PO DAILY #30 ta bs 12/19/23 release 24 hr (Procardia XL) ketorolac 10 mg tablet 10 mg PO Q6H PRN pain 4 days #16 08/24/24 tabs Allergies Allergy/AdvReac Type Severity Reaction Status Date / Time NSAIDS (Non-Steroidal Allergy ADR-Vomitin Verified 08/24/24 15:45 Anti-Inflamma g Review of Systems 2 Const: Denies: fever(s) or chills Card: Denies: chest pain Resp: Denies: dyspnea GI: Reports: abdominal pain and nausea : Denies: dysuria, urinary frequency or urinary urgency Musc: Denies: neck pain or back pain Skin/Breast: Denies: rash PFSH ED 2 PFSH: Family History (Updated 09/09/22 @ 15:31 by Jeannie Murray) Mother Cancer skin Brother Diabetes Type 2 Denies family history of CAD (coronary artery disease) Hypertension Stroke Female Reproductive History: Date of last menstrual period: 08/19/24 Physical Exam 2 Const: COMMON NORMALS: no acute distress GENERAL APPEARANCE: cooperative and comfortable ORIENTATION/CONSCIOUSNESS: Yes awake, Yes oriented to person, Yes oriented to place and Yes oriented to time HENMT: COMMON NORMALS: normocephalic, atraumatic and hearing grossly normal bilaterally HEAD & SCALP: normocephalic and atraumatic Resp: COMMON NORMALS: normal respiratory effort, No retractions, No use of accessory muscles and clear to auscultation bilaterally AUSCULTATION: clear to auscultation bilaterally Cardio: COMMON NORMALS: regular rate, regular rhythm and No murmurs present (Cardio) RATE: regular rate RHYTHM: regular rhythm GI: COMMON NORMALS: No hepatosplenomegaly present AUSCULTATION: Yes normoactive bowel sounds PALPATION: No Tenderness to palpation present (GI), No Guarding due to palpation present (GI) and Yes No hepatosplenomegaly present Extremity: COMMON NORMALS: normal to inspection, capillary refill normal, no clubbing, cyanosis or edema, no calf tenderness and no pedal edema Neuro: SENSORIUM/ORIENTATION: Yes oriented to person, Yes oriented to place and Yes oriented to time Skin: COMMON NORMALS: no rashes or lesions noted GENERAL SKIN EXAM: no rashes or lesions noted Course 2 Vital Signs: Vital signs: Vital Signs Temperature 98.6 F 08/24/24 15:41 Pulse Rate 84 08/24/24 21:35 Respiratory Rate 18 08/24/24 21:35 Blood Pressure 115/78 08/24/24 21:35 Pulse Oximetry 98 08/24/24 21:35 Oxygen Delivery Me thod Room Air 08/24/24 19:22 MDM - Abdominal Pain Medical Decision Making Care signed out to Dr. Freire at change of shift. See final notes for diagnosis and disposition. CT personally reviewed, had dilated appendix and a large ovarian cyst. Possible uterine mass per rads. Ultrasound obtained with consent of patient and shows large 4.9 cm echogenic lesion of the right ovary likely hemorrhagic cyst. Follow-up with ENVIRONMENTAL PROTECTION OFFICER discussed with patient. Return precautions discussed extensively. Patient denies any B symptoms such as unintentional weight loss, night sweats fatigue dyspnea. Dyschezia Lab Data 08/24/24 16:16 08/24/24 16:16 Labs/Radiology: Radiology Impressions Abdomen/Pelvis CT 08/24/24 17:05 IMPRESSION: 1. Enlarged uterus approximately 5.7 cm exophytic mass protruding into right hemipelvis. Findings incompletely characterized on noncontrast CT. Further evaluation with dedicated ultrasound is recommended. 2. 2.4 cm simple appearing right adnexal cyst. Pelvic/Transvag US 08/24/24 19:26 IMPRESSION: 1. Significantly enlarged right ovary with a proximally 4.9 cm echogenic lesion. Differential diagnosis includes hemorrhagic cyst, neoplasm not excluded. Note, this corresponds to mass visualized on prior CT abdomen and pelvis study. 2. Unremarkable sonographic appearance of uterus and left ovary. Laboratory Results WBC 19.89 10^3/uL (3.29-11.43) H 08/24/24 16:16 RBC 5.02 10^6/uL (3.85-5.65) 08/24/24 16:16 Hgb 13.20 g/dL (11.27-16.99) 08/24/24 16:16 Hct 41.1 % (36-47) 08/24/24 16:16 MCV 81.9 fl (85-98) L 08/24/24 16:16 MCH 26.3 pg (27-33) L 08/24/24 16:16 MCHC 32.1 g/dL (30-55) 08/24/24 16:16 RDW 13.2 % (12.1-15.1) 08/24/24 16:16 Plt Count 483 10^3/cmm (157-399) H 08/24/24 16:16 MPV 8.7 fL (7.4-10.4) 08/24/24 16:16 Neut % (Auto) 87.2 % 08/24/24 16:16 Lymph % (Auto) 8.7 % 08/24/24 16:16 [place] % (Auto) 3.3 % 08/24/24 16:16 Eos % (Auto) 0.2 % 08/24/24 16:16 Baso % (Auto) 0.2 % 08/24/24 16:16 Neut # (Auto) 17.34 10^3/uL (1.8-7.7) H 08/24/24 16:16 Lymph # (Auto) 1.7 10^3/uL (0.8-4.8) 08/24/24 16:16 [place] # (Auto) 0.7 10^3/uL (0.2-0.9) 08/24/24 16:16 Eos # (Auto) 0.0 10^3/uL (0.0-0.8) 08/24/24 16:16 Baso # (Auto) 0.0 10^3/uL (0.0-0.1) 08/24/24 16:16 Nucleated RBC % (auto) 0 % 08/24/24 16:16 Nucleated RBCs # 0.0 /100WBC 08/24/24 16:16 Sodium 143 mmol/L (136-145) 08/24/24 16:16 Potassium 4.2 mmol/L (3.5-5.1) 08/24/24 16:16 Chloride 103 mmol/L (98-107) 08/24/24 16:16 Carbon Dioxide 26 mmol/L (22-29) 08/24/24 16:16 Anion Gap 18.2 (5-19) 08/24/24 16:16 BUN 8 mg/dL (6-20) 08/24/24 16:16 Creatinine 0.6 mg/dL (0.5-0.9) 08/24/24 16:16 GFR Calculation 122.8 mL/min (90-130) 08/24/24 16:16 Glucose 107 mg/dL (65-115) 08/24/24 16:16 Calculated Osmolality 295 mOsm/kg (285-295) 08/24/24 16:16 Lactic Acid 1.4 mmol/L (0.5-2.2) 08/24/24 16:16 Calcium 9.3 mg/dL (8.5-10.5) 08/24/24 16:16 Total Bilirubin 0.4 mg/dL (0.15-1.2) 08/24/24 16:16 AST 16 U/L (0-32) 08/24/24 16:16 ALT 18 U/L (0-33) 08/24/24 16:16 Alkaline Phosphatase 138 U/L (35-105) H 08/24/24 16:16 Total Protein 8.0 g/dL (6.6-8.7) 08/24/24 16:16 Albumin 4.1 g/dL (3.5-5.2) 08/24/24 16:16 Globulin 3.9 g/dL (1.3-4.6) 08/24/24 16:16 Lipase 21 U/L (13-60) 08/24/24 16:16 HCG, Qual Negative (Negative) 08/24/24 16:16 Urine Color Dark yellow (Yellow) A 08/24/24 17:03 Urine Appearance Clear (CLEAR) 08/24/24 17:03 Urine pH 8.5 (5-7) A 08/24/24 17:03 Ur Specific [place] 1.029 (1.005-1.030) 08/24/24 17:03 Urine Protein 1+ (Negative) A 08/24/24 17:03 Urine Glucose (UA) Negative (Normal) 08/24/24 17:03 Urine Ketones Trace (Negative) 08/24/24 17:03 Urine Blood Negative (Negative) 08/24/24 17:03 Urine Nitrate Negative (Negative) 08/24/24 17:03 Urine Bilirubin Negative (Negative) 08/24/24 17:03 Urine Urobilinogen 1.0 mg/dL (Negative) 08/24/24 17:03 Ur Leukocyte Esterase Negative (Negative) 08/24/24 17:03 Urine RBC 0-2 /hpf (0-2) 08/24/24 17:03 Urine WBC 0-5 /hpf (0-5) 08/24/24 17:03 Ur Squamous Epith Cells 6-10 /hpf (0-5) 08/24/24 17:03 Amorphous Sediment Not Reportable 08/24/24 17:03 Urine Bacteria 1+ /hpf (NONE) H 08/24/24 17:03 Hyaline Casts 0-4 /lpf H 08/24/24 17:03 Discharge Plan Discharge Patient Disposition: Home Clinical Impression: Ovarian cyst Qualifiers: Laterality: right Qualified Code(s): N83.201 - Unspecified ovarian cyst, right side Condition: Stable Prescriptions: New ketorolac 10 mg tablet 10 mg PO Q6H PRN (Reason: pain) 4 Days Qty: 16 0RF No Action Prena-Tab 1 tab PO DAILY calcium 1 tab PO DAILY docusate sodium 100 mg Capsule 100 mg PO BID Qty: 60 1RF hydrocodone-acetaminophen 5-325 mg Tablet 1 - 2 tab PO Q4H PRN (Reason: Moderate To Severe Pain) Qty: 20 0RF Procardia XL 30 mg tablet extended release 24hr 30 mg PO DAILY Qty: 30 0RF Discharge Orders: Discharge ED (Routine); Ordered 08/24/24 Ordered By: Baldo Freire Referrals: Mirta Kirby MD [Primary Care Provider] - Discharge Diet: Usual diet Discharge Activity: Resume usual activity Patient Instructions: Ovarian Cyst (ED) Print Language: [place] Sign Out Sign Out Data: Patient Sign Out occurred on 08/24/24 at 18:45. Patient's care was discussed, and care was transferred from Delano Galan DO to Baldo Freire MD. 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 Documented by User: Baldo Freire MD 08/24/24 21:13 HPI - Abdominal Pain 2 General: Chief Complaint: Abdominal Pain Stated Complaint: abd pain Time Seen by Provider: 08/24/24 16:01 Related Data Home Medications ?Medication ?Instructions ?Recorded ?Confirmed Prena-Tab 1 tab PO DAILY 11/22/2312/05 calcium 1 tab PO DAILY 11/22/2312/05 Previous Rx's ?Medication ?Instructions ?Recorded docusate sodium 100 mg capsule 100 mg PO BID #60 caps 12/19/23 hydrocodone 5 mg-acetaminophen 325 1 - 2 tab PO Q4H VA N Moderate To 12/19/23 mg tablet Severe Pain #20 tabs nifedipine 30 mg tablet,extended 30 mg PO DAILY #30 ta bs 12/19/23 release 24 hr (Procardia XL) ketorolac 10 mg tablet 10 mg PO Q6H PRN pain 4 days #16 08/24/24 tabs Allergies Allergy/AdvReac Type Severity Reaction Status Date / Time NSAIDS (Non-Steroidal Allergy ADR-Vomitin Verified 08/24/24 15:45 Anti-Inflamma g PFSH ED 2 PFSH: Family History (Updated 09/09/22 @ 15:31 by Jeannie Murray) Mother Cancer skin Brother Diabetes Type 2 Denies family history of CAD (coronary artery disease) Hypertension Stroke Physical Exam 2 GI: PALPATION: Yes Tenderness to palpation present (GI) Details: other (suprapubic), No Guarding due to palpation present (GI) and No Rigid due to palpation Course 2 Reevaluation(s): Reevaluation #1: Patient doing okay concerning pain. On my evaluation patient has suprapubic tenderness. CT was fairly unremarkable except for an exophytic mass in the uterus and right ovarian cyst. Patient's pain is more central than right lower quadrant. On my review of the CT scan her appendix did appear large but no stranding. Time: 19:34 Vital Signs: Vital signs: Vital Signs Temperature 98.6 F 08/24/24 15:41 Pulse Rate 84 08/24/24 21:35 Respiratory Rate 18 08/24/24 21:35 Blood Pressure 115/78 08/24/24 21:35 Pulse Oximetry 98 08/24/24 21:35 Oxygen Delivery Me thod Room Air 08/24/24 19:22 MDM - Abdominal Pain Medical Decision Making CT personally reviewed, had dilated appendix and a large ovarian cyst. Possible uterine mass per rads. Ultrasound obtained with consent of patient and shows large 4.9 cm echogenic lesion of the right ovary likely hemorrhagic cyst. Follow-up with ENVIRONMENTAL PROTECTION OFFICER discussed with patient. Return precautions discussed extensively. Patient denies any B symptoms such as unintentional weight loss, night sweats fatigue dyspnea. Dyschezia Differential Diagnosis Likely abdominal pain, acute appendicitis, calculus of kidney, constipation, endometriosis and gastroenteritis Medical Records I reviewed the patient's medical records. Lab Data I reviewed the patient's lab results. 08/24/24 16:16 08/24/24 16:16 Labs/Radiology: Radiology Impressions Abdomen/Pelvis CT 08/24/24 17:05 IMPRESSION: 1. Enlarged uterus approximately 5.7 cm exophytic mass protruding into right hemipelvis. Findings incompletely characterized on noncontrast CT. Further evaluation with dedicated ultrasound is recommended. 2. 2.4 cm simple appearing right adnexal cyst. Pelvic/Transvag US 08/24/24 19:26 IMPRESSION: 1. Significantly enlarged right ovary with a proximally 4.9 cm echogenic lesion. Differential diagnosis includes hemorrhagic cyst, neoplasm not excluded. Note, this corresponds to mass visualized on prior CT abdomen and pelvis study. 2. Unremarkable sonographic appearance of uterus and left ovary. Laboratory Results WBC 19.89 10^3/uL (3.29-11.43) H 08/24/24 16:16 RBC 5.02 10^6/uL (3.85-5.65) 08/24/24 16:16 Hgb 13.20 g/dL (11.27-16.99) 08/24/24 16:16 Hct 41.1 % (36-47) 08/24/24 16:16 MCV 81.9 fl (85-98) L 08/24/24 16:16 MCH 26.3 pg (27-33) L 08/24/24 16:16 MCHC 32.1 g/dL (30-55) 08/24/24 16:16 RDW 13.2 % (12.1-15.1) 08/24/24 16:16 Plt Count 483 10^3/cmm (157-399) H 08/24/24 16:16 MPV 8.7 fL (7.4-10.4) 08/24/24 16:16 Neut % (Auto) 87.2 % 08/24/24 16:16 Lymph % (Auto) 8.7 % 08/24/24 16:16 [place] % (Auto) 3.3 % 08/24/24 16:16 Eos % (Auto) 0.2 % 08/24/24 16:16 Baso % (Auto) 0.2 % 08/24/24 16:16 Neut # (Auto) 17.34 10^3/uL (1.8-7.7) H 08/24/24 16:16 Lymph # (Auto) 1.7 10^3/uL (0.8-4.8) 08/24/24 16:16 [place] # (Auto) 0.7 10^3/uL (0.2-0.9) 08/24/24 16:16 Eos # (Auto) 0.0 10^3/uL (0.0-0.8) 08/24/24 16:16 Baso # (Auto) 0.0 10^3/uL (0.0-0.1) 08/24/24 16:16 Nucleated RBC % (auto) 0 % 08/24/24 16:16 Nucleated RBCs # 0.0 /100WBC 08/24/24 16:16 Sodium 143 mmol/L (136-145) 08/24/24 16:16 Potassium 4.2 mmol/L (3.5-5.1) 08/24/24 16:16 Chloride 103 mmol/L (98-107) 08/24/24 16:16 Carbon Dioxide 26 mmol/L (22-29) 08/24/24 16:16 Anion Gap 18.2 (5-19) 08/24/24 16:16 BUN 8 mg/dL (6-20) 08/24/24 16:16 Creatinine 0.6 mg/dL (0.5-0.9) 08/24/24 16:16 GFR Calculation 122.8 mL/min (90-130) 08/24/24 16:16 Glucose 107 mg/dL (65-115) 08/24/24 16:16 Calculated Osmolality 295 mOsm/kg (285-295) 08/24/24 16:16 Lactic Acid 1.4 mmol/L (0.5-2.2) 08/24/24 16:16 Calcium 9.3 mg/dL (8.5-10.5) 08/24/24 16:16 Total Bilirubin 0.4 mg/dL (0.15-1.2) 08/24/24 16:16 AST 16 U/L (0-32) 08/24/24 16:16 ALT 18 U/L (0-33) 08/24/24 16:16 Alkaline Phosphatase 138 U/L (35-105) H 08/24/24 16:16 Total Protein 8.0 g/dL (6.6-8.7) 08/24/24 16:16 Albumin 4.1 g/dL (3.5-5.2) 08/24/24 16:16 Globulin 3.9 g/dL (1.3-4.6) 08/24/24 16:16 Lipase 21 U/L (13-60) 08/24/24 16:16 HCG, Qual Negative (Negative) 08/24/24 16:16 Urine Color Dark yellow (Yellow) A 08/24/24 17:03 Urine Appearance Clear (CLEAR) 08/24/24 17:03 Urine pH 8.5 (5-7) A 08/24/24 17:03 Ur Specific [place] 1.029 (1.005-1.030) 08/24/24 17:03 Urine Protein 1+ (Negative) A 08/24/24 17:03 Urine Glucose (UA) Negative (Normal) 08/24/24 17:03 Urine Ketones Trace (Negative) 08/24/24 17:03 Urine Blood Negative (Negative) 08/24/24 17:03 Urine Nitrate Negative (Negative) 08/24/24 17:03 Urine Bilirubin Negative (Negative) 08/24/24 17:03 Urine Urobilinogen 1.0 mg/dL (Negative) 08/24/24 17:03 Ur Leukocyte Esterase Negative (Negative) 08/24/24 17:03 Urine RBC 0-2 /hpf (0-2) 08/24/24 17:03 Urine WBC 0-5 /hpf (0-5) 08/24/24 17:03 Ur Squamous Epith Cells 6-10 /hpf (0-5) 08/24/24 17:03 Amorphous Sediment Not Reportable 08/24/24 17:03 Urine Bacteria 1+ /hpf (NONE) H 08/24/24 17:03 Hyaline Casts 0-4 /lpf H 08/24/24 17:03 All radiology interpretation(s) finalized by discharge Discharge Plan Discharge Patient Disposition: Home Clinical Impression: Ovarian cyst Qualifiers: Laterality: right Qualified Code(s): N83.201 - Unspecified ovarian cyst, right side Condition: Stable Prescriptions: New ketorolac 10 mg tablet 10 mg PO Q6H PRN (Reason: pain) 4 Days Qty: 16 0RF No Action Prena-Tab 1 tab PO DAILY calcium 1 tab PO DAILY docusate sodium 100 mg Capsule 100 mg PO BID Qty: 60 1RF hydrocodone-acetaminophen 5-325 mg Tablet 1 - 2 tab PO Q4H PRN (Reason: Moderate To Severe Pain) Qty: 20 0RF Procardia XL 30 mg tablet extended release 24hr 30 mg PO DAILY Qty: 30 0RF Discharge Orders: Discharge ED (Routine); Ordered 08/24/24 Ordered By: Baldo Freire Referrals: Mirta Kirby MD [Primary Care Provider] - Discharge Diet: Usual diet Discharge Activity: Resume usual activity Patient Instructions: Ovarian Cyst (ED) Print Language: Austrian Sign Out Sign Out Data: Patient Sign Out occurred on 08/24/24 at 18:45. Patient's care was discussed, and care was transferred from Delano Galan DO to Baldo Freire MD. 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
[2024-08-24 17:03] LABS: Lactic Sepsis W/Reflex 1.4 mmol/L (0.5-2.2)
[2024-08-24] MEDS: sodium chloride 0.9% 2,381.37 ML 2381.37 ML IV (17:04)
--- NOTE | 2024-08-24 17:05 | CTR_ITS ---
PROCEDURE INFORMATION: Exam: CT Abdomen And Pelvis Without Contrast Exam date and time: 08/24/2024 5:46 PM Age: 24 years old Clinical indication: Abdominal pain; Localized; Right lower quadrant (rlq); Prior surgery; Surgery date: 6+ months; Surgery type: Csection; Additional info: Rlq abdominal pain TECHNIQUE: Imaging protocol: Computed tomography of the abdomen and pelvis without contrast. Radiation optimization: All CT scans at this facility use at least one of these dose optimization techniques: automated exposure control; mA and/or kV adjustment per patient size (includes targeted exams where dose is matched to clinical indication); or iterative reconstruction. COMPARISON: US OB >= 14 weeks fetus [id number] 08/25/2023 2:04 PM RADIATION DOSE METRICS: Total DLP (mGy-cm): 746.61 FINDINGS: Lungs: Unremarkable. Diaphragm: Small hiatal hernia. Liver: Normal. No mass. Gallbladder and biliary ducts: Normal. No calcified stones. No ductal dilation. Pancreas: Normal. No ductal dilation. Spleen: Normal. No splenomegaly. Adrenal glands: Normal. No mass. Kidneys and ureters: Normal. No hydronephrosis. Stomach and bowel: Unremarkable. No obstruction. No mucosal thickening. Appendix: No evidence of appendicitis. Intraperitoneal space: Unremarkable. No free air. No significant fluid collection. Vasculature: Unremarkable. No abdominal aortic aneurysm. Lymph nodes: Unremarkable. No enlarged lymph nodes. Urinary bladder: Unremarkable as visualized. Reproductive: Enlarged uterus with approximately 5.7 cm exophytic mass (4/165) protruding into right hemipelvis. . 2.4 cm right adnexal cyst. Bones/joints: Unremarkable. No acute fracture. Soft tissues: 5 mm fat containing umbilical hernia. CT/CT abdomen pelvis con [id number] IMPRESSION: 1. Enlarged uterus approximately 5.7 cm exophytic mass protruding into right hemipelvis. Findings incompletely characterized on noncontrast CT. Further evaluation with dedicated ultrasound is recommended. 2. 2.4 cm simple appearing right adnexal cyst.
[2024-08-24 17:21] LABS: Bilirubin Urine Negative (Negative); Blood Urine Negative (Negative); Glucose Urine UA Negative (Normal); Ketones Urine Trace (Negative); Leukocyte Esterase Urine Negative (Negative); Nitrate Urine Negative (Negative); Protein Urine 1+ (Negative); Specific Gravity, Urine 1.029 (1.005-1.030); Urine Appearance Clear (CLEAR); Urine Color Dark Yellow (Yellow); pH Urine 8.5 (5-7)
[2024-08-24 17:26] LABS: Add Urine Microscopic? YES; Bacteria Urine 1+ /hpf; Hyaline Casts Urine 0-4 /lpf; RBC Urine 0-2 /hpf (0-2); WBC Urine 0-5 /hpf (0-5)
[2024-08-24 17:29] LABS: Add Urine Culture? No
[2024-08-24] MEDS: ondansetron 2 mg/ML SDV 2 mL 4 MG IVP (18:20)
[2024-08-24] MEDS: morphine 4 mg/mL SDV 1 mL IVP (18:21)
[2024-08-24] MEDS: piperacillin-tazobactam 3.375 GM in sodium chloride 0.9% (plus) 50 ML IV (19:21)
[2024-08-24 19:22] VITALS: BP 115/79; PULSE 104; O2SAT 97
--- NOTE | 2024-08-24 19:26 | USR_ITS ---
PROCEDURE INFORMATION: Exam: US Pelvis Transabdominal, Limited, and US Pelvis Transvaginal, Non-Obstetric Exam date and time: 08/24/2024 7:47 PM Age: 24 years old Clinical indication: Abdominal pain; Right lower quadrant; Prior surgery; Surgery date: 6+ months; Surgery type: 12/15/2023; Additional info: Abn uterus on CT w/ R ovarian cyst. Leukocytosis, rlq ttp TECHNIQUE: Imaging protocol: Real-time transabdominal and transvaginal pelvic ultrasound (non-obstetric) with image documentation. Transabdominal imaging is limited. Transvaginal imaging was used for better evaluation of the endometrium, adnexa, and/or cervix. COMPARISON: CT abdomen pelvis wo con [id number] 08/24/2024 5:46 PM FINDINGS: Uterus: The uterus demonstrates normal size and echotexture. It measures 7.6 x 4.3 x 3.9 cm. No uterine masses are identified. Normal endometrium with thickness up to 6 mm. Right ovary/adnexa: Right ovary is significantly enlarged in comparison to the left and measures approximately 6.0 x 5.4 x 5.3 cm. There is a approximately 4.9 cm homogeneous mildly echogenic lesion. Normal color Doppler flow is present. Left ovary/adnexa: Left ovary is within normal limits and measures 3.1 x 2.2 x 3.0 cm. Multiple subcentimeter follicles are present within left ovary. Normal color Doppler flow. Urinary bladder: Urinary bladder is limited. Intraperitoneal space: Small amount of free pelvic fluid within posterior cul-de-sac. US/US pelvis lmt w transvag IMPRESSION: 1. Significantly enlarged right ovary with a proximally 4.9 cm echogenic lesion. Differential diagnosis includes hemorrhagic cyst, neoplasm not excluded. Note, this corresponds to mass visualized on prior CT abdomen and pelvis study. 2. Unremarkable sonographic appearance of uterus and left ovary.
[2024-08-24] MEDS: ketorolac 30 mg/mL INJ 15 MG IVP (21:30)
[2024-08-24] MEDS: ketorolac 10 mg Tablet PO (21:30)
[2024-08-24 21:35] VITALS: BP 115/78; PULSE 84; RESP 18; O2SAT 98
== END 2024-08-24 21:47 | disposition home or self-care (01) ==
PROVIDERS: Physician Assistant; Emergency Provider Emergency Medicine; PCP Family Medicine
DX: N83.201 Unspecified ovarian cyst, right side (principal)
CPT/HCPCS: 36415; 74176; 76830; 76857; 80053; 81001; 83605; 83690; 84703; 85025; 87040; 96361; 96374; 96375; 99285; J1885; J2270; J2405; J2543; J7030; J9999

== ENCOUNTER 2024-12-21 15:02 | Outpatient (CLI) | payer BC, OTHER, MEDICAID, SELFPAY ==
--- NOTE | 2024-12-21 15:10 | MR_ITS ---
WS: [id number] MRI PELVIS WITH AND WITHOUT CONTRAST. COMPARISON: Pelvic ultrasound 11/15/2024, 09/13/2024, CT 08/24/2024 Multiplanar, multisequence imaging is performed with and without contrast. MultiHance 18 mL. Uterus: Uterus is midline measuring 7.8 x 3.4 x 5.1 cm. No fibroid or mass. Normal endometrium at 7 mm. No increased vascularity. No free fluid in the pelvis. There is a large well-circumscribed mass in the cul-de-sac slightly greater to the RIGHT of midline. Mass measures 6.7 x 7.0 x 5.9 cm. Mass is of increased signal on the T1 sequences and also increased on the T1 with fat saturation. There is no enhancement. Intermediate signal also present on the T2 sequences. No focal solid component identified. There is homogeneous signal throughout. Normal size LEFT ovary is identified containing small follicles. Separate RIGHT ovary is not identified. I suspect it is closely associated with the RIGHT lateral aspect of the pelvic mass. No free fluid. No adenopathy. Visualized urinary bladder is negative. MR/MR pelvis wo/w con [id number] IMPRESSION: 1. Solid mass in the cul-de-sac slightly greater to the RIGHT of midline measu res 6.7 x 7.0 x 5.9 cm. Consistent with an endometrioma. 2. Normal uterus. 3. Normal endometrium.
[2024-12-21] MEDS: gadobenate dimeglumine 20 mL vial 18 ML IV (16:20)
== END 2024-12-21 15:03 | disposition home or self-care (01) ==
LOC: RAD 15:03
PROVIDERS: PCP Family Medicine; Visit Provider Family Medicine
DX: N85.8 Other specified noninflammatory disorders of uterus (principal); R10.31 Right lower quadrant pain; R10.32 Left lower quadrant pain
CPT/HCPCS: 72197

== ENCOUNTER 2025-02-13 09:09 | Day surgery (SDC) | payer OTHER, BC, SELFPAY ==
[2025-02-13] VITALS (13 sets, daily range): BP systolic 110–138; BP diastolic 58–88; PULSE 74–89; RESP 15–18; TEMP 36.2–36.9; O2SAT 92–100; BMI 31.1
--- NOTE | 2025-02-13 00:47 | W.PM.OPSFHP ---
Same Day Surgery H&P Indication for Procedure/HPI DATE OF PROCEDURE: February 13, 2025 CHIEF COMPLAINT/INDICATIONFOR SURGICAL PROCEDURE: right adnexal mass PREOP DIAGNOSIS: right adnexal mass PLANNED PROCEDURE: Operation Date: 02/13/25 10:45 Proposed Procedures p Laparoscopic Ovarian Cystectomy 29990, 55256, N94.89(Right) - Pipe Nicole MD Medications/Allergies* Home Medications ?Medication ?Instructions ?Recorded ?Confirmed ?Type No Known Home Medications 12/07/24 02/12/25 History Allergies/Adverse Reactions Allergy/AdvReac Type Severity Reaction Status Date / Time NSAIDS (Non-Steroidal Allergy ADR-Vomitin Verified 02/12/25 13:58 Anti-Inflamma g Pertinent History/Comorbid Conditions* Family History (Updated 09/09/22 @ 15:31 by Jeannie Murray) Diabetes Brother Type 2 Cancer Mother skin Denies family history of CAD (coronary artery disease) Hypertension Stroke Social History Smoking and tobacco/nicotine status: never used tobacco/nicotine Pertinent Exam Findings alert, oriented x 3, clear to auscultation bilaterally and regular rate & rhythm Recommendations Surgery/Procedure today Coding Level of Care Code Acute Code for Chg Fwd
[2025-02-13 09:53] LABS: OR HCG Qualitative Urine Negative (Negative)
--- NOTE | 2025-02-13 12:04 | W.PM.OPSUD ---
Surgery/Procedure H&P Update DATE OF PROCEDURE: February 13, 2025 DATE H&P PERFORMED: 02/13/25 H&P UPDATE INFORMATION: I have reviewed H&P completed within last 30 days, I have examined patient prior to procedure and No changes to prior documentation PREOP DIAGNOSIS: right adnexal mass PLANNED PROCEDURE: Operation Date: 02/13/25 10:45 Proposed Procedures p Laparoscopic Ovarian Cystectomy 54839, 72694, N94.89(Right) - Pipe Nicole MD
--- NOTE | 2025-02-13 14:15 | P.OP_ITS ---
Operative Report Date of procedure: February 13, 2025 Pre-op diagnosis: 6 cm right adnexal cyst Post-op diagnosis: 6 cm right ovarian cyst Post-op findings: Normal uterus Normal left ovary and tube Normal right fallopian tube Right ovary involved in 6 cm cyst Otherwise normal pelvis Procedure done: Laparoscopy Laparoscopic right oophorectomy Implants: none Specimens removed/disposition: right ovary Surgeon: Pipe Nicole MD Anesthesia: General Estimated blood loss (mL): 5 Complications: none Findings: see above Condition: stable Disposition: PACU Brief History: 24 y.o. G0 with pelvic pain and 6 cm right adnexal cyst on pelvic sono Procedure: The patient was taken to the OR and placed supine on the table. General endotracheal anesthesia was given. The abdomen was then prepped and draped in the usual fashion. A 5 mm subumbilical skin incision was made. A 5 mm trocar with sheath was then inserted into the peritoneal cavity under direct visualization with the laparoscope. After confirming intraperitoneal position, pneumoperitoneum was achieved. Two separate 5 mm incisions were made in the right and left mid- quadrants. 5 mm trocars with sheaths were then inserted into the peritoneal cavity under direct visualization with the laparoscope. The pelvis was explored with the laparoscope with the above findings. No abnormalities were seen in the utero-ovarian ligaments, broad ligaments, anterior cul-de-sac and pelvic side-adames. The right ovary was seen to be involved with a 6 cm cyst. A needle was used to drain the cyst, old brown blood was obtained. A Ligasure device was then used to excise the ovary. A 10 mm trocar with sheath was then placed in the supraumbilical incision after the 5 mm trocar was removed. The ovary and cyst was then removed via one of the ports using an endopouch. This was sent to pathology. No bleeding was seen The liver edge was visualized and was normal. The remainder of the pelvis was again examined and seen to be normal. All instruments were then removed from the abdominal cavity after the pneumoperitoneum was allowed to escape. The supraumbilical fascia was closed with two stitches of O-Vicryl. The skin incisions were closed with 4-O monocryl. Dermabond was applied. The cabrera catheter was removed. The patient was then awakened and taken to the recovery room in good condition. Postop condition stable. EBL 5 cc. There were no complications. Sponge and instrument counts were correct x two
[2025-02-13] MEDS: fentaNYL 50 mcg/mL INJ 2mL IVP (14:16)
[2025-02-13] MEDS: oxyCODONE-APAP 5-325 mg Tablet 1 TAB PO (15:04)
== END 2025-02-13 15:45 | disposition home or self-care (01) ==
PROVIDERS: PCP Family Medicine; Visit Provider Obstetrics & Gynecology
PROC: (CPT 58662; principal; 2025-02-13 10:45)
PROC: (CPT 58661; 2025-02-13 10:45)
DX: N83.201 Unspecified ovarian cyst, right side (principal)
CPT/HCPCS: 58661; 81025; 88305; A4216; J2250; J2405; J2704; J3010; J7030; J9999